=== PATIENT | male | born 1970 ===

== ENCOUNTER 2025-05-09 13:58 | Outpatient (AMB) | payer OTHER, SELFPAY ==
--- OUTSIDE RECORDS SUMMARY | 2024-10-11 11:00 | XMS_ITS | Encounter Summary ---
Author Name [facility] [facility] [place] Address [address] [place] [address] Care Team Providers Care Pin Setter Name Role Phone CECY CRANE Primary Care Provider Unavailab le Insurance Providers: All historical and current Section Date Range: From patient's date of to the date document was created. This section includes the names of all active insurance providers for the patient. Insurance Provider Type of Coverage Plan Name Start of Policy Coverage End of Policy Coverage Group Number Member ID Insurance Provider's Telephone Number Policy Walls's Name Patient's Relationship to Policy Walls [facility] FEDERAL PREFERRED PROVIDER ORGANIZAT ION (PPO) BASIC FAMIL Y Nov 06, 2017 [id number] Ally WILLS PATIENT [employer]AN PRESCRIPT ION [employer] Nov 06, 2017 [id number] Ally WILLS RANDYGIBSON PATIENT [employer] PLAN PRESCRIPT ION [employer] Nov 06, 2017 [id number] Ally WILLS PATIENT Selected Encounter This section includes the information on record at [place] for the Encounter. Date/Time Encounter Type Encounter Description Reason Provider Source Oct 11, 2024 03:00 PM OFFICE O/P EST HI 40 MIN PRIMARY CARE/MEDICINE ICD-10-CM M54.16 Radiculopathy , lumbar region ROSA MARIA,CECY H E Encounter Template Text not used by [facility] Assessments - Encounter Diagnoses This section includes the primary and secondary diagnoses documented for the Encounter. Date/Time Primary/Secondary Diagnosis Diagnosis Name Provider Source Oct 11, 2024 04:22 PM PRIMARY Radiculopathy, lumbar region ROSA MARIA,GRISELDA ER H [facility] Oct 11, 2024 04:22 PM SECONDARY Cervicalgia ROSA MARIA,GRISELDA ER H [facility] Oct 11, 2024 04:22 PM SECONDARY Depression, unspecified ROSA MARIA,GRISELDA ER H [facility] Oct 11, 2024 04:22 PM SECONDARY Encounter for immunization CUCCARO,EAGLE P [facility] Oct 11, 2024 04:22 PM SECONDARY Post-traumatic stress disorder, chronic ROSA MARIA,MONROE ER H [facility] Oct 11, 2024 04:22 PM SECONDARY Vitamin D deficiency, unspecified ROSA MARIA,MONROE ER [facility] Plan of Treatment: Future Appointments (+ 6 months) and Future Tests (+/- 45 days) The Plan of Treatment section includes future care activities for the [facility] [place] [facility] This section includes future appointments and future orders which are active, pending or scheduled. Future Appointments This section includes appointments that were scheduled to occur 6 months from the date of the Encounter, up to a maximum of 20 appointments. The data comes from all [place] treatment facilities. Appointment Date/Time Appointment Type Appointme nt Facility Name Oct 19, 2024 09:30 AM AMBULATORY - MEDICINE [facility] Nov 06, 2024 12:00 PM AMBULATORY - NONE [facility] Lab Results: +/- 30 days of the encounter This section includes the Chemistry and Hematology Lab Results on record with [place] for the patient. Radiology Reports and Pathology Reports are provided separately, in subsequent sections. Lab Results This section contains the Chemistry/Hematology Results that were resulted 30 days before or 30 daysafter the date of the Encounter. Date/Time Source Result Type Result - Unit Interpretation Reference Range Specimen Type Comment Oct 11, 2024 03:56 PM [facility] URINE ALBUMIN, SPOT PROFILE URINE Specimen Ty pe: URINE Comment: Microalbumin-Cre at Ratio cannot be calculated; urine albumin is <0.5 mg/dL. Ordering Provider: CECY CRANE Report Released Date/Time: Oct 03, 2024 09:26 AM Reporting Lab: [address] [phone] Performing Lab: [address] [address] Urine ALB/CRE,SPOT-RATIO canc mg/g{creat} 0-29 Urine ALBUMIN,SPOT-QNT <0.5 mg/dL CREATININE, URINE RANDOM 210.70 mg/dL >= 20.0 Oct 11, 2024 07:58 AM [facility] HIV AB/ P24 AG COMBO(HIV SCREEN) SERUM Specimen Type: SERUM Comment: Hepatitis C Ab: No HCV antibody detected. If recent infection is suspected or other evidence suggests HCV infection, consider HCV nucleic acid testing. Hep B Surface Ab: A 'Reactive' result indicates HBsAb results >/= 12.0 mIU/mL and immunity to HBV infection. HIV Ab/ P24 Ag Combo: A 'Nonreactive' result does not exclude acute infection. If acute HIV is suspected, consider HIV viral load testing. Ordering Provider: CECY CRANE Report Released Date/Time: Oct 03, 2024 09:26 AM Reporting Lab: [address] [phone] Performing Lab: [address] [phone] HIV AB/ P24 AG COMBO(HIV SCREEN) Non Reactive Non Reactive Oct 11, 2024 07:58 AM [facility] VITAMIN D TOTAL(SCREEN) SERUM Specime n Type: SERUM Comment: For TSH values between 4.00 mIU/mL and 10.00 mIU/mL, be aware TSH is known to naturally increase in winter, with age, and with certain nonthyroidal illnesses. It is recommended to retest patients with mild abnormalities in two to three months. Effective 08/15/13 - Vitamin D, Total (Screen) test should not be used when single dose 50,000 IU D2 is administered. Ordering Provider: CECY CRANE Report Released Date/Time: Oct 03, 2024 09:26 AM Reporting Lab: [address] [phone] Performing Lab: [address] [phone] VITAMIN D TOTAL(SCREEN) 16.0 ng/mL L 20.0- 50.0 Oct 11, 2024 07:58 AM [facility] B12 SERUM Specimen Type: SERUM Comment: For TSH values between 4.00 mIU/mL and 10.00 mIU/mL, be aware TSH is known to naturally increase in winter, with age, and with certain nonthyroidal illnesses. It is recommended to retest patients with mild abnormalities in two to three months. Effective 08/15/13 - Vitamin D, Total (Screen) test should not be used when single dose 50,000 IU D2 is administered. Ordering Provider: CECY CRANE Report Released Date/Time: Oct 03, 2024 09:26 AM Reporting Lab: [address] [phone] Performing Lab: [address] [phone] B12 573 pg/mL 300-900 Oct 11, 2024 07:58 AM [facility] HEP B SURF AB SERUM Specimen Type: S DON Comment: Hepatitis C Ab: No HCV antibody detected. If recent infection is suspected or other evidence suggests HCV infection, consider HCV nucleic acid testing. Hep B Surface Ab: A 'Reactive' result indicates HBsAb results >/= 12.0 mIU/mL and immunity to HBV infection. HIV Ab/ P24 Ag Combo: A 'Nonreactive' result does not exclude acute infection. If acute HIV is suspected, consider HIV viral load testing. Ordering Provider: CECY CRANE Report Released Date/Time: Oct 03, 2024 09:26 AM Reporting Lab: [address] [phone] Performing Lab: [address] [phone] HEP B SURF AB REACTIVE Non Reactive Oct 11, 2024 07:58 AM [facility] HEPATITIS C Ab SERUM Specimen Type: S DON Comment: Hepatitis C Ab: No HCV antibody detected. If recent infection is suspected or other evidence suggests HCV infection, consider HCV nucleic acid testing. Hep B Surface Ab: A 'Reactive' result indicates HBsAb results >/= 12.0 mIU/mL and immunity to HBV infection. HIV Ab/ P24 Ag Combo: A 'Nonreactive' result does not exclude acute infection. If acute HIV is suspected, consider HIV viral load testing. Ordering Provider: CECY CRANE Report Released Date/Time: Oct 03, 2024 09:26 AM Reporting Lab: [address] [phone] Performing Lab: [address] [phone] HEPATITIS C Ab Non Reactive Non Reactive Oct 11, 2024 07:58 AM [facility] TSH SERUM Specimen Type: SERUM Comment: For TSH values between 4.00 mIU/mL and 10.00 mIU/mL, be aware TSH is known to naturally increase in winter, with age, and with certain nonthyroidal illnesses. It is recommended to retest patients with mild abnormalities in two to three months. Effective 08/15/13 - Vitamin D, Total (Screen) test should not be used when single dose 50,000 IU D2 is administered. Ordering Provider: CECY CRANE Report Released Date/Time: Oct 03, 2024 09:26 AM Reporting Lab: [address] [phone] Performing Lab: [address] [phone] TSH 2.26 m[IU]/mL 0.35-5.00 Oct 11, 2024 07:58 AM [facility] LIPOPROTEIN PROFILE SERUM Specimen Ty pe: SERUM Comment: For TSH values between 4.00 mIU/mL and 10.00 mIU/mL, be aware TSH is known to naturally increase in winter, with age, and with certain nonthyroidal illnesses. It is recommended to retest patients with mild abnormalities in two to three months. Effective 08/15/13 - Vitamin D, Total (Screen) test should not be used when single dose 50,000 IU D2 is administered. Ordering Provider: CECY CRANE Report Released Date/Time: Oct 03, 2024 09:26 AM Reporting Lab: [address] [phone] Performing Lab: [address] [phone] CHOLESTEROL 163 mg/dL 0-199 TRIGLYCERIDE 99 mg/dL 0-199 HDL 56 mg/dL >=40 LDL 87.0 mg/dL 0-129 Oct 11, 2024 07:58 AM [facility] LIVER PROFILE SERUM Specimen Type: S DON Comment: For TSH values between 4.00 mIU/mL and 10.00 mIU/mL, be aware TSH is known to naturally increase in winter, with age, and with certain nonthyroidal illnesses. It is recommended to retest patients with mild abnormalities in two to three months. Effective 08/15/13 - Vitamin D, Total (Screen) test should not be used when single dose 50,000 IU D2 is administered. Ordering Provider: CECY CRANE Report Released Date/Time: Oct 03, 2024 09:26 AM Reporting Lab: [address] [phone] Performing Lab: [address] [phone] ALBUMIN 4.3 g/dL 3.5-5.0 TOT. BILIRUBIN 0.90 mg/dL 0.2-1.2 DIR. BILIRUBIN 0.4 mg/dL 0.0-0.5 ALKALINE PHOSPHATASE 91 U/L 40-150 ALT 28 U/L 7-52 AST 30 U/L 5-40 Oct 11, 2024 07:58 AM [facility] HEMOGLOBIN A1C PANEL BLOOD Specimen Type: BLO OD Comment: 5.7 - 6.4% Prediabetes >= 6.5% Diabetic range. If the patient has not yet been diagnosed with T2DM, see [place]/[facility] Clinical Practice Guideline for Management of T2DM (dated 01/2017) for more guidance. For patients already diagnosed with T2DM, target HbA1c values should be individualized using a Shared Decision-Making process. Ref: https://www.healthquality.va.gov/guidelines/CD/diabetes/ Values obtained from A1C measurements can vary. For typical A1C assays, a reported value of 7.0 could actually be between 6.72 and 7.28 if measured by a reference method. A reported value of 9.0 could actually be between 8.73 and 9.27. Ref: https://ngsp.org/CAPdata.asp Ordering Provider: CECY CRANE Report Released Date/Time: Oct 03, 2024 09:26 AM Reporting Lab: [address] [phone] Performing Lab: [address] [phone] HEMOGLOBIN A1C 5.6 <=5.6 EST.AVERAGE GLUCOSE 114 mg/dL Oct 11, 2024 07:58 AM [facility] CHEM 7 SERUM Specimen Type: SERUM Comment: For TSH values between 4.00 mIU/mL and 10.00 mIU/mL, be aware TSH is known to naturally increase in winter, with age, and with certain nonthyroidal illnesses. It is recommended to retest patients with mild abnormalities in two to three months. Effective 08/15/13 - Vitamin D, Total (Screen) test should not be used when single dose 50,000 IU D2 is administered. Ordering Provider: CECY CRANE Report Released Date/Time: Oct 03, 2024 09:26 AM Reporting Lab: [address] [phone] Performing Lab: [address] [phone] CREATININE,SERUM 1.41 mg/dL 0.5-1.5 UREA NITROGEN, BLOOD 17 mg/dL 7-25 GLUCOSE,RANDOM 89 mg/dL 65-100 SODIUM 140 mmol/L 135-145 POTASSIUM 4.0 mmol/L 3.5-5.0 CHLORIDE 106 mmol/L 100-110 CO2 26 meq/L 20-30 ANION GAP 8 meq/L 6-16 eGFR(CKD-EPI 2020) 59 mL/min L >=60 Oct 11, 2024 07:58 AM [facility] CBC W/ AUTO DIFF BLOOD Specimen Type: BLOOD No comment entered. Ordering Provider: CECY CRANE Report Released Date/Time: Oct 03, 2024 09:26 AM Reporting Lab: [address] [phone] Performing Lab: [address] [phone] WBC 6.3 10*3/uL 4.5-11.0 RBC 5.69 10*6/uL H 4.23-5.66 HGB 15.3 g/dL 12.8-17.0 HCT 46.7 39.2-50.4 MCV 82 fL 82-99 MCH 26.9 pg 26.2-32.6 MCHC 32.8 g/dL 30.8-35.1 PLT 274 10*3/uL 140-360 MPV 9.9 fL 9.2-12.4 RDW 13 12-16 LYMPH % 35.0 14.0-42.3 NEUT % 45.5 43.7-75.8 MONO % 11.3 5.1-13.7 EOSIN % 7.3 H 0.4-6.8 BASO % 0.6 0.1-2.0 ABSOLUTE LYMPHOCYTE COUNT 2.2 10*3/uL 1. 0-3.2 ABSOLUTE NEUTROPHIL COUNT 2.8 10*3/uL 2. 2-7.6 IMMATURE GRAN % 0.3 0.0-0.7 NRBC/100WBC 0.0 /100{WBCs} 0.0-0.0 Vital Signs: All taken on the encounter date This section contains inpatient and outpatient Vital Signs collected on the date of the Encounter. Date/Time Temperature Pulse Blood Pressure Respiratory Rate SP02 Pain Height Weight Body Mass Index Source Oct 11, 2024 03:11 PM 97.5 66 133/71 20 100 3 68 196 30 [facility] Immunizations: All administered on the encounter date This section contains immunizations associated to the Encounter. Immunization Series Date Issued Administered By Site Reaction Lot Number CVX Code Drug Electronics Recycler Comment(s) Source ZOSTER RECOMBINANT 2 Oct 11, 2024 EAGLE RODRÍGUEZ LEFT DELTO ID [id number] [employer]igo Abraham AT [facility] Social History: Smoking Status (Most current) and Tobacco Use (All prior to encounter date) This section includes the most current, and the historical, smoking and tobacco- related health factors from the [place] facility where the Encounter took place. Current Smoking Status This section includes the most current smoking, or tobacco-related health factor, from the [place] facility where the Encounter took place. Date/Time Current Smoking Status Comment María oh Nov 22, 2023 03:00 PM [place]-TOBACCO NEVER USED [facility] Tobacco Use History This section includes a history of the smoking, or tobacco-related health factors, that were collected on or before the date of the Encounter. The data comes from the [place] facility where the Encounter took place. Date/Time Smoking Status/Tobacco Use Comment Khloe acility Jul 06, 2022 10:00 AM [place]-TOBAC[place] NEVER USED [facility] Jun 16, 2021 02:00 PM [place]-TOBACCO NEVER USED [facility] March 05, 2020 08:45 AM VA-TOBACCO NEVER USED [facility] Feb 13, 2019 06:19 PM VA-TOBACCO NEVER USED [facility] Jan 16, 2018 01:36 PM LIFETIME NON-TOBACCO USER [facility] Jan 05, 2018 12:55 PM LIFETIME NON-TOBACCO USER [facility] Jan 03, 2017 04:02 PM LIFETIME NON-TOBACCO USER [facility] Dec 25, 2015 11:38 AM LIFETIME NON-TOBACCO USER [facility] Jan 23, 2013 12:56 PM LIFETIME NON-TOBACCO USER [facility] Radiology Reports: +/- 30 days of the encounter Radiology Reports For cases when an order for radiology services may have been completed prior to the date of the Encounter, the report list includes the Radiology Reports that were completed up to 30 days before dateof the Encounter. For cases when an order for radiology services may have been completed after the date of the Encounter, the report list also includes the Radiology Reports that were completed up to30 days after date of the Encounter. The data comes from all [place] treatment facilities. Date/Time Radiology Report Provider Source Oct 18, 2024 08:33 AM MRI LUMBAR SPINE W ITHOUT CONTRAST: ARA WILLS [id number] -[id number] M Exm Date: OCT 18, 2024@08:33 Req Phys: CECY CRANE Pat Loc: [facility] A EDGARDO KISER [facility] [employer] [facility] (Re Img Loc: MRI ([facility]) Service: Unknown [facility] [place] [address] (Case [id number] COMPLETE) MRI LUMBAR SPINE W/O CONTRAST (MRI Detailed) CPT:76089 Reason for Study: Lumbar radiculopathy Clinical History: M54.16 - Radiculopathy, Lumbar Region CLINICAL HISTORY: Lumbar radiculopathy refractory to conservative treatment. 1. No Cardiac Pacemaker/Defibrillator/AICD 2. No Incoherent/Uncooperative/Unabl e to tolerate MRI 3. No Does the patient have any surgically implanted devices? 4. No Metal in eyes from grinding or welding 5. No Possible BB, bullets, or shrapnel 6. No Aneurysm clip 7. No Claustrophobia (if yes, must order oral sedation and need designated straddle bug driver-no call needed) POTENTIAL CONTRAINDICATIONS- If the patient has a pacemaker or if there is a question regarding any implanted devices please call MRI @ [phone]. Report Status: Verified Date Reported: OCT 18, 2024 Date Verified: OCT 18, 2024 Vice President Integrated E-Sig:/ES/ELOISA BOWEN Report: MRI LUMBAR SPINE WITHOUT INTRAVENOUS CONTRAST INDICATION: Lumbar radiculopathy TECHNIQUE: MRI of the lumbar spine was performed without intravenous contrast. COMPARISON: 07/27/2016. FINDINGS: For the purposes of this examination, the last fully developed intervertebral disc space will be labeled L5-S1. Interval grade 1 anterolisthesis of L4 on L5. There is straightening of the lumbar lordosis. Vertebral body heights are maintained. Bone marrow signal is unremarkable. Conus medullaris is normal in position and signal. No abnormal thickening or clumping of cauda equina nerve roots. There is multilevel disc desiccation, disc space narrowing, diffuse disc bulges, degenerative changes of the endplates, anterior and posterior osteophyte formation with facet joint arthropathy and ligamentum flavum hypertrophy. These have progressed from prior examination. Level by level evaluation as follows: T12-L1: There is no significant abnormal disc morphology, or spinal canal or neuroforaminal stenosis. L1-2: There is no significant abnormal disc morphology, or spinal canal or neuroforaminal stenosis. L2-3: There is no significant abnormal disc morphology, or spinal canal or neuroforaminal stenosis. L3-4: There is mild spinal canal and bilateral neuroforaminal stenosis. L4-5: There is mild spinal canal stenosis, moderate right greater than left neuroforaminal stenosis. L5-S1: There is no significant spinal canal stenosis. Moderate to severe left and mild right neural foraminal narrowing, with impingement on the exiting left L5 nerve root. Additionally, there is a left subarticular disc extrusion with inferior subligamentous extension impinging on the descending left S1 nerve root. Impression: Progressive degenerative changes, worst at L4-S1 as detailed above, with interval development of grade 1 anterolisthesis at L4-L5. Primary Diagnostic Code: No Immediate Attention Required Primary Interpreting Staff: ELOISA BOWEN Staff Physician (Vice President Integrated) /ELOISA BYRD [facility] Encounter Notes: All associated encounter notes This section contains the clinical notes associated to the Encounter. Date/Time Encounter Note(s) Provider Source Oct 11, 2024 04:00 PM IMMUNIZATION NOTE: LOCAL TITLE: IMMUNIZATIONS (GT) STANDARD TITLE: IMMUNIZATION NOTE DATE OF NOTE: OCT 11, 2024@16:00 ENTRY DATE: OCT 11, 2024@16:00:44 AUTHOR: EAGEL RODRÍGUEZ EXP COSIGNER: URGENCY: STATUS: COMPLETED Herpes Zoster (Shingles) Vaccine: Administered: ZOSTER RECOMBINANT Date Administered: Oct 11, 2024 15:00 Series: Series 2 Electronics Recycler: [employer] Lot: [id number] Exp Date: Aug 25, 2026 [facility]: [phone] Admin Route/Site: INTRAMUSCULAR/LEFT DELTOID Dosage: 0.5mL Vaccine Information Statement(s): RECOMBINANT ZOSTER VACCINE VIS Dec 04, 2021 (FRISIAN) Order By: Policy Administered By: Eagle Rodríguez Vaccine Information Sheet (VIS) was given to the patient/caregiver, education regarding adverse reactions was discussed, as well as barriers to learning, if any, were acknowledged. /ilan/ EAGLE RODRÍGUEZ TALENT BUYER TALENT BUYER PRIMARY CARE Signed: 10/11/2024 16:02 EAGLE RODRÍGUEZ [facility] Oct 11, 2024 03:11 PM PRIMARY CARE OUTPA TIENT NOTE: LOCAL TITLE: PRIMARY CARE CLINIC VISIT STANDARD TITLE: PRIMARY CARE OUTPATIENT NOTE DATE OF NOTE: OCT 11, 2024@15:11 ENTRY DATE: OCT 11, 2024@15:11:54 AUTHOR: CECY CRANE EXP COSIGNER: URGENCY: STATUS: COMPLETED Primary Care Visit Note === HPI: 54 yo MALE with PMHx of pes planus, MIGNON, osteoarthritis, and hemorrhoids who presents to the clinic for routine healthcare. ACTIVE ISSUES: #Mental health -Was seening a counselor at the [facility]; however, she left and he has not had time to re-establish care. -He is an employee here at the [place] and does not feel comfortable seeing a [facility] MH provider due to [id number] issue -Knows that he would encourage fellow service members to see MH, but admits he has difficulty following his own advice. -Currently in [employer] and concerned about how MH care might affect his status. 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 Xray board had brain/skull fragment on it and he was not able to help who was mouthing words to him. He recalls eyes drifting upward. Often thinks of this during the day while he is awake and unable to supress recurrent thought. - He states he had passive suicidal ideation about 2 weeks ago where he thought about going to a place by the water in [place] and cutting his wrists. He did not act on this because his son needs his support. 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 -Has history of discectomy -Neuralgia is chronic # Caregiver support - He is only sibling in [place] that is able to take care of father (also a ). His father lives alone, but he often needs assistance. ==ROS=== (-) Fevers/Chills (-) Dyspnea/Cough (-) Leg Swelling (-) Night Sweats (-) Orthopnea/PND (-) Bleeding/Bruising (-) Heat/Cold Intolerance (-) CP/Palpitations (-) Skin Lesions (-) Weight Gain (-) Abdominal Pain (+) Neck Pain (-) Headaches (-) N/V/D (+) Low back apin (-) Vision Changes (-) Constipation (+) (-) Hearing Changes (-) Melena/Hematochezia (+) (-) Rhinitis/Epistaxis (-) Dysuria/Hematuria (-) Dysphagia/Odynophagia (-) Nocturia === Past Med Hx: (per chart review) # back injury 07/2012 in service # medial tibiofemoral osteoarthritis in his right knee # pes planus # moderate MIGNON # internal hemorrhoids === Past Surgical Hx: (per chart review) # Hernia repair # L5/S1 partial discectomy 03/2013 at [facility] === Outside Providers: None === Hx: Service: [employer] and currently in the Res[employer]; deployed to [place], [place], [place], [place]; In [employer]--E-7 Years: 2002->present Exposures: Burn pits === Family Hx (from prior and updated): F: HTN, HLD, Gout, heart murmur, prostate cancer with radiation treatment M: Breast Cancer M-GF M-GM P-GF P-GM: accidental (fall) Siblings - older sister- breast CA dx 4 years ago, HTN, DM, - oldest brother w/ HTN, DM recent CVA w/ resultant rt handed weakness @ age 63 older sister age 58 hx of Hep C/breast CA w/ mets to brain - older brother- sarcoid, heart murmur, DM, HTN - older brother- HTN Children: x3: healthy Uncle-colon cancer--new dx 2020 === Social Hx: Tobacco products: Never Beer, wine, hard alcohol: Beer, Vodka, x2 weeks. 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 Exercise: Working to improve Diet: None Interpersonal relationships: Sexually active: Yes Contraception (if applicable): Firearms: Yes; Locked away Seatbelts: Yes === Allergies: Patient has answered NKA === Medications: Active Outpatient Medications (including Supplies): Issue Date Status Last Fill Active Outpatient Medications Refills Expiration 1) ERGOCALCIF 1,250MCG (D2-50,000UNIT) CAP Qty: ACTIVE Issue: 10/11/24 12 for 84 days Sig: TAKE ONE CAPSULE BY Refills: 0 Last : 10/11/24 MOUTH ONCE EVERY 7 DAYS Expr : 01/03/25 Indication: FOR VITAMIN D SUPPLEMENTATION 2) LIDOCAINE 5% PATCH Qty: 30 for 30 days Sig: ACTIVE Issue: 06/04/24 APPLY 1 PATCH TO SKIN ONCE DAILY *APPLY BY Refills: 3 Last : 06/04/24 PRESSING FIRMLY 10-15 SECONDS(KEEP ON UP TO Expr : 06/05/25 12HOURS & REMOVE FOR 12HOURS) Indication: FOR NERVE PAIN 3) MELOXICAM 15MG TAB Qty: 45 for 90 days Sig: ACTIVE Issue: 10/11/24 TAKE ONE-HALF TABLET BY MOUTH ONCE DAILY Refills: 0 Last : 10/11/24 Indication: FOR INFLAMMATION Expr : 01/09/25 === Physical Exam: VITAL SIGNS: Temperature: 97.5 F [36.4 C] (10/11/2024 15:11) Pulse: 66 (10/11/2024 15:11) Blood Pressure: 133/71 (10/11/2024 15:11) SpO2: 100 CONSTITUTIONAL: Conversant, well developed male in NAD. EYES: Anicteric sclerae; no lid-lag or proptosis. RESPIRATORY: Normal respiratory effort. CARDIOVASCULAR: No peripheral edema, S1/S2, no murmur, gallop, rub, or click. ABDOMINAL: Bowel sounds active x4, no pain during palpation, protuberant abdomen SKIN: No rash, lesions or ulcers. MUSCULOSKELETAL No digital cyanosis. Normal gait and station. Spine: L-Spine: No gross deformity, no spinous process tenderness, bilateral paraspinal tenderness throughout lumbar spine NEURO: Cranial nerves IIXII grossly intact. PSYCH: Intact judgment and insight. A&OX3 with a cordial affect, tearful === Labs: Reviewed === Studies: N/A === Plan: # Depression/PTSD - [facility] - [facility]. He declines at this time. - Phone follow up with PCP in 1 week - Safety plan made with - Suicide hotline information given to . # Neck Pain - Continue lidoderm patch - Chiropractic to discuss accupuncture - Trial Meloxicam 7.5mg # Low Back Pain - Consult chiropractic: would like to discuss accupuncture - [ ] Xray L-spine today - [ ] MRI L-spine # Vitamin D Def. - Start weekly Vitamin D - Recheck in 3 months. 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 Reminders: COVID-19 Immunization: Refused Pfizer Monovalent COVID-19 vaccine Immunization: COVID-19 (PFIZER), MRNA, LNP-S, PF, ADRIENNE-SUCROSE, 30 MCG/0.3 ML (AGES 12+ YEARS) Refusal Reason: PATIENT DECISION Patient refuses all immunization(s) in the COVID-19 group Date Documented: 10/11/24 16:21 Return to Clinic: On the date of the encounter, I spent 40 minutes on some or all of the following: chart review, history, physical examination, treatment planning, education and counseling of the patient/family/caregiver, placing orders, communicating with other healthcare providers, and documentation in the electronic health record. /ilan/ CECY CRANE DNP, WEB WORKER-C REFERENCE LIBRARIAN Signed: 10/11/2024 16:23 CECY CRANE [facility]
--- NOTE | 2025-05-09 14:01 | MHC.OFFWIV ---
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 - The injury occurred last night while lifting a nightstand and worsened today with lifting a desk. - Pain is at the base of the right palm, exacerbated by wrist extension. - No prior injuries or orthopedic consultations for the wrist. - No medications or braces or ice used before this visit. Physical Exam General: Cooperative, healthy appearing, comfortable, no acute distress and well developed Orientation: Patient oriented x3 Limitations: No limitations Head: Normal to inspection Ears: Hearing grossly normal bilaterally Nose: Normal External nose present Face and sinus: Normal facial exam Mouth: normal, moist oral mucosa Eyes: Appearance normal, both eyes and all related structures Neck: Normal visual inspection and Yes full ROM Respiratory: Normal respiratory effort and able to speak in complete sentences. Skin: no rashes or lesions noted Neuro: Patient oriented x3 Extremities: moving all extremities normally, right wrist TTP at base, pain with flexion, mild pain with extension, supination, pronation, ulnar and radial deviation, negative Tinel's, negative phalens, mild edema at base of the right palm. 5/5 baggage security checker strength bilaterally PFSH Social History Patient Tobacco Use Status: Never used Tobacco Review of Systems Const All systems reviewed & are unremarkable except as noted in HPI and below Physical Exam Vital Signs: Last Vital Signs Temp 98.3 F 05/09/25 14:03 Pulse 67 05/09/25 14:03 BP 126/70 05/09/25 14:03 Pulse Ox 96 05/09/25 14:03 Oxygen Delivery Method Room Air 05/09/25 14:03 BMI result Body Mass Index 29.3 Assessment & Plan Assessment & Plan (1) Right wrist sprain: Code(s): S63.501A - Unspecified sprain of right wrist, initial encounter Qualifiers: Encounter type: initial encounter Wrist sprain location: unspecified location Qualified Code(s): S63.501A - Unspecified sprain of right wrist, initial encounter Plan: Plan Patient was informed and verbally consented to the use of an ambient scribe for clinic note documentation during this visit Wrist Sprain - No indication for an XR due to mechanism of injury - Provided a wrist brace to immobilize and rest the wrist for 2 weeks. Wean off brace over next 2-3 weeks. - Advise using Motrin 600 mg every six hours for pain management ATC for a few days then PRN. - Suggest applying ice to the affected area to reduce swelling. - Encourage performing range of motion exercises once or twice daily to prevent stiffness. - Follow up with primary care if no improvement is observed. Coding Level of Care Code New Pt Level 3 (64997) Diagnoses Sprain of right wrist, unspecified location, initial encounter S63.501A Encounter type: initial encounter Wrist sprain location: unspecified location
[2025-05-09 14:03] VITALS: BP 126/70; PULSE 67; TEMP 36.8; O2SAT 96; BMI 29.3
--- OUTSIDE RECORDS SUMMARY | 2025-05-09 14:05 | XMS_ITS | Encounter Summary ---
Author Organization [facility] Address [address] [place] [address] Care Team Providers Care Hardware Designer Name Role Phone Rosanna Black MD Primary Care Provider [phone] Encounter Details Date Type Department Care Team (Late st Contact Info) Description 07/24/2014 Abstract [facility] at [address] [place] [address] Donnell Julien MD Social History Tobacco Use Types Packs/Day Years Used Date Smoking Tobacco: Never Alcohol Use Standard Drinks/Week Comments Yes 0.8 (1 standard drink = 0.6 oz p ure alcohol) occasionally Sex and Gender Information Value Date Recorded Sex Assigned at Not on file Legal Sex Male 6:38 AM EST Gender Identity Not on file Sexual Orientation Not on file 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
--- OUTSIDE RECORDS SUMMARY | 2025-05-09 14:05 | XMS_ITS | Clinical Summary ---
Author Organization [facility] Address [address] [place] [address] Care Team Providers Care Datastage Consultant Name Role Phone Pcp, No Primary Care Provider Unavailabl e Social History Tobacco Use Types Packs/Day Years Used Date Smoking Tobacco: Never Assessed Sex and Gender Information Value Date Recorded Sex Assigned at Male 10/12/2023 9:31 AM EST Legal Sex Male 11:26 AM EDT Gender Identity Male 10/12/2023 9:31 AM EST Sexual Orientation Choose not to disclose 2022 9:31 AM EST Plan of Treatment Health Maintenance Due Date Last Done Comments Hepatitis C Virus Screening 1969 HIV Screening 1982 DTaP/Tdap/Td Vaccines (1 - Tdap) 1988 Hepatitis B Vaccines (1 of 3 - 19+ 3-dose series) 08/01 Pneumococcal Vaccines 50+ (1 of 1 - PCV) 2019 Zoster (Shingles) Vaccine (1 of 2) 2019 COVID-19 Vaccine ( - season) 2024 Care Teams Datastage Consultant Relationship Specialty Start Date End Date Pcp, No PCP - General General Medicine 10/12/23
== END 2025-05-09 15:08 | disposition home or self-care (01) ==
PROVIDERS: Visit Provider Physician Assistant
DX: S63.501A Unspecified sprain of right wrist, initial encounter (principal)

== ENCOUNTER → 2025-05-09 13:58 | Outpatient (BNVA) | payer SELFPAY | PROVIDERS: Visit Provider Physician Assistant | DX: S63.501A Unspecified sprain of right wrist, initial encounter (principal); X58.XXXA Exposure to other specified factors, initial encounter; Y93.9 Activity, unspecified; Y92.9 Unspecified place or not applicable; Y99.9 Unspecified external cause status | CPT/HCPCS: 99202 ==